=== PATIENT | female | born 1970 | race Caucasian/White ===

== ENCOUNTER 2017-10-06 10:44 | Emergency (ER) | payer MEDICARE, MEDICAID, SELFPAY ==
[2017-10-06 10:45] VITALS: TEMP 36.4
--- NOTE | 2017-10-06 12:31 | ED.VISSUMM ---
- ER Visit Summary Date of Service: 10/06/17 Chief Complaint: [Left foot pain and swelling] History of Present Illness: The patient is a 47 F [presents the emergency department with caregiver with complaint of left foot swelling that was noticed today at workshop. Patient is nonverbal and history comes from caregiver that is with the patient. No injury was noted or recalled. Patient has a history of Down syndrome and MRDD. Patient cannot give any history.] Caregiver states the patient was able to bear weight and get herself in the car without difficulty. Physical Examination: [HEENT-PERRLA, EOMI. Cranial nerves II through XII grossly intact. TMs clear. Mucous membranes moist. No adenopathy. Cardiovascular-regular rate and rhythm without murmur or ectopy Lungs-clear to auscultation, chest wall stable without crepitus or subcu emphysema Abdomen-normoactive bowel sounds, soft, nontender, no rebound or rigidity, no peritoneal signs. Extremities-intact ?4, normal range of motion, normal pulses. Left foot-there is some mild soft tissue swelling noted over the mid dorsum of the foot. Patient really does not seem to wince or pull away when I palpate the foot. She is neurovascular intact with normal dorsal pedal posterior tibial pulses as well as normal cap refill. No obvious deformity. No ecchymosis or bruising noted. Test Results: [X-rays of the left foot obtained showed no fractures only degenerative changes.] Emergency Department Course and Treatment: [] Treatment Plan: [Follow-up with primary care physician in 5-7 days] Disposition: [Discharged home in stable condition.] Impression: [Left foot sprain] This note was generated with [employer] dictation software. It may contain incorrect words, spelling, and punctuation that were not noted in review of the chart prior to signing ED Disposition - Plan for ED Patient: Chief Complaint: Lower Extremity Injury Referrals: [facility] Doctor,Out of [Primary Care Provider] -
--- NOTE | 2017-10-06 12:33 | ED.DEP ---
ED Disposition - Plan for ED Patient: Chief Complaint: Lower Extremity Injury Instructions: ED Sprain Foot Referrals: [facility],Out of [Primary Care Provider] - 5-7 Days
[2017-10-06 12:37] VITALS: BP 100/71; PULSE 68; RESP 18; O2SAT 95
== END 2017-10-06 12:46 | disposition home or self-care (01) ==
PROVIDERS: Emergency Provider Emergency Medicine; Family Provider Internal Medicine Infectious Disease
DX: S93.602A Unspecified sprain of left foot, initial encounter (principal); Q90.9 Down syndrome, unspecified; F79 Unspecified intellectual disabilities; Z79.899 Other long term (current) drug therapy; X58.XXXA Exposure to other specified factors, initial encounter; Y93.89 Activity, other specified; Y92.198 Other place in other specified residential institution as the place of occurrence of the external cause; Y99.8 Other external cause status
CPT/HCPCS: 73630; 99282